=== PATIENT | male | born 1955 | race Caucasian/White ===

== ENCOUNTER 2024-10-16 11:59 | Emergency (ER) | payer MEDICARE, SELFPAY ==
--- NOTE | ~2024-10-16 | XR_ITS ---
CLINICAL HISTORY: Postreduction left 3rd finger 3 view left 3rd digit Comparison: CR - XR FINGER LT MIN 2V - 10/16/24 12:52 EST Findings: Interval reduction of the previously seen dislocation of the 3rd proximal interphalangeal joint. Appropriate alignment. Tiny adjacent bone fragments again noted. Mild arthritic change. No erosions. No radiopaque foreign body. IMPRESSION: Interval reduction of the dislocation of the 3rd proximal interphalangeal joint. This document has been electronically signed by: Conchis Guerrero MD on 10/16/2024 18:10:37
--- NOTE | ~2024-10-16 | XR_ITS ---
CLINICAL HISTORY: third digit pain 3 view [id number] digit Comparison: None Findings: There is dislocation of the 3rd proximal interphalangeal joint. The articular surface of the base of the 3rd middle phalanx is posterior and proximal to the articular surface of the head of the 3rd proximal phalanx. There are at least 2 tiny adjacent avulsed bone fragments. Mild arthritic change. No erosions. No radiopaque foreign body. IMPRESSION: Dislocation of the 3rd proximal interphalangeal joint with tiny adjacent avulsed bone fragments. This document has been electronically signed by: Conchis Guerrero MD on 10/16/2024 13:35:55
[2024-10-16 12:17] VITALS: BP 188/100; PULSE 67; RESP 19; TEMP 36.6; O2SAT 98; BMI 23.3
--- NOTE | 2024-10-16 12:20 | ED_ITS ---
HPI - Extremity Problem General Chief complaint: Extremity Injury, Upper Stated complaint: L Hand Middle Finger Injury Time Seen by Provider: 10/16/24 16:50 History of Present Illness HPI Narrative: Patient complains of left 3rd finger dislocation after slip and fall on the ice He denies any other injury he did not hit his head he has no neck pain no back pain no other extremity pains, he was not dizzy preceding the fall it was no syncope or presyncope He denies any numbness weakness or tingling in the finger Related Data Allergies Allergy/AdvReac Type Severity Reaction Status Date / Time No Known Allergies Allergy Verified 10/16/24 12:19 [No Known Allergies*] [facility] Social History Social History Advance Directives: No Advance Directives Information Provided: Yes Do you have a plan to hurt others: No Plan Physical Exam Vital Signs: Vital Signs: Last Vital Signs Temp 98 F 10/16/24 12:17 Pulse 67 10/16/24 12:17 Resp 19 10/16/24 12:17 BP 188/100 H 10/16/24 12:17 Pulse Ox 98 10/16/24 12:17 O2 Del Method Room Air 10/16/24 12:17 BMI result Body Mass Index 23.3 General appearance comfortable cooperative no acute distress Head is normocephalic atraumatic Neck is supple Respiratory no distress The left hand 3rd finger is deformed consistent with a dislocation, it is neurovascular intact distal, there is a small abrasion on the medial aspect of the proximal phalanx of the 3rd finger, very superficial not an open fracture Other extremities normal The rest of the left hand exam was normal Course Course Course Narrative: This is an RME: Additional HPI, ROS, PE not included below will be deferred to primary provider. RME assessment and note performed by: Valeria Young PA-C This is a 68-year-old male presents emergency department with complaints of left 3rd digit pain. Patient had a slip and fall. To an urgent care where they started splinting however abrasion noted to his skin, and was concerned for an open fracture. Patient with all VS dislocation of the 3rd middle phalanx, good capillary refill. Tender to palpation. Will obtain x-rays, further ER eval needed. Plan: xrays, further ER eval needed X-ray showed left 3rd finger dislocation with some tiny adjacent avulsed bone f ragments A digital block was placed with good results using 6 cc of 1% lidocaine and the finger was easily reduced Finger splint was placed and patient was discharged On discharge patient said that he was sent from urgent care because of the punctate abrasion on his left 3rd finger out of concern it was an open fracture, the x-ray did not show any jagged bone fragments that could a punctured the skin and on exam the abrasion is very superficial and did not penetrate so no open fracture Medications Administered Discontinued Medications Generic Name Dose Route Start Last Admin Trade Name Freq PRN Reason Stop Dose Admin Lidocaine HCl 5 ml 10/16/24 16:52 10/16/24 16:58 Lidocaine Hcl 1 % Mpf 5 Ml Vial SUBCUT 10/16/24 16:53 5 ml ONCE ONE Administration Lidocaine HCl 5 ml 10/16/24 16:52 10/16/24 16:58 Lidocaine Hcl 1 % Mpf 5 Ml Vial SUBCUT 10/16/24 16:53 5 ml ONCE ONE Administration Discharge Plan Discharge Clinical Impression: Dislocated finger Patient Disposition: Home, Self-Care Additional Instructions: The dislocated finger is back in place A splint was placed and you could remove it in 48 hours and start lightly using the finger Follow with orthopedist or primary doctor if not getting better quickly Return any time if it pops out of place or for any worse condition or any concerns The small abrasion on your finger is not an open fracture there was no jagged at the that could have punctured through Referrals: Pushpa Jacob MD [Physician] - (Left 3rd finger dislocation) Print Language: Sami
[2024-10-16] MEDS: Lidocaine HCl 1 % MPF 5 ML VIAL SUBCUT ×2 (16:58)
[2024-10-16 18:14] VITALS: BP 160/88; PULSE 77; RESP 18; TEMP 37.1; O2SAT 98
== END 2024-10-16 18:15 | disposition home or self-care (01) ==
PROVIDERS: Emergency Provider Emergency Medicine
DX: S63.253A Unspecified dislocation of left middle finger, initial encounter (principal); S60.512A Abrasion of left hand, initial encounter; W00.0XXA Fall on same level due to ice and snow, initial encounter; Y93.9 Activity, unspecified; Y92.9 Unspecified place or not applicable; Y99.8 Other external cause status
CPT/HCPCS: 29130; 73140; 99282; 99284; J2003

== ENCOUNTER → 2024-10-16 12:20 | Outpatient (BNV) | payer OTHER, SELFPAY | PROVIDERS: Visit Provider Radiology Diagnostic Radiology | DX: S63.283A Dislocation of proximal interphalangeal joint of left middle finger, initial encounter (principal) | CPT/HCPCS: 73140 ==

== ENCOUNTER 2024-10-25 09:11 | Outpatient (AMB) | payer MEDICARE, SELFPAY ==
[2024-10-25 09:42] VITALS: BMI 23.3
--- NOTE | 2024-10-25 09:42 | MHC.OFFVIS ---
Vital Signs 10/25/24 09:42 Height 6 ft Weight 172 lb BMI 23.3 Intake Visit Reasons: FC-Left 3rd finger dislocation-DOI 10/16/24 Intake Note: Bon 68 yr old right hand dominant male presents today for a new patient visit for his left middle finger dislocation after slip and fall on the ice on 10/16/24. States he was seen at urgent care where xrays were taken and pt was splinted due to a dislocation. States they had concerned for an open fracture. He was then seen at [facility] ED where his was reduced and splinted again. Currently states he has swelling, limited ROM , swelling and bruising. Also reports numbness that started after his fall. Denies locking of any finger. Allergies No Known Allergies [No Known Allergies*] Allergy (Verified 10/25/24 09:46) HPI HPI FC-Left 3rd finger dislocation-DOI 10/16/24: Details: Bon is a 68 year old right hand dominant man who presents for a left middle finger dislocation, S/P reduction in ED. DOI: 10/16/24 from a fall, and reduced 10/16/24. He was placed in a finger splint. He says he has pain, swelling, and limited ROM of his finger He also complains of numbness in his finger, which began following his injury. [facility] Social History (Updated 10/25/24 @ 09:46 by ELY Sheppard) Current occupational status: retired Current occupation: rt hand Review of Systems Const All systems reviewed & are unremarkable except as noted in HPI and below Physical Exam Vital Signs: BMI result Body Mass Index 23.3 Const General: cooperative, healthy appearing and no acute distress Orientation/consciousness: patient oriented x3 HEENT Head: Yes normocephalic and Yes atraumatic Eyes EOM: EOMs intact bilaterally Resp Effort & Inspection: normal respiratory effort and able to speak in complete sentences Cardio Jugular venous distension: no JVD Skin General skin exam: turgor normal Rashes: no rashes Neuro General: patient oriented x3 Extrem Other: Evaluation of Left Upper Extremity: The patient is alert, oriented, and in no acute distress Neuro: Median, Ulnar, Radial nerves motor and sensory intact, except for some decreased subjective sensation in the ulnar digital nerve to the middle finger has been present since his injury. Normal sensation to the radial digital nerve Vascular: Cap refill brisk The middle finger PIP joint is still swollen, and mildly tender. He has good range of motion in that finger with an arc of motion at the PIP joint from 0 to about 75 degrees and back to extension. Limitation appears to be secondary to swelling. The PIP joint is stable on exam. No lacerations or evidence of open injury Radiographs: 3 views of the left hand from 10/16/24 were reviewed by me today in clinic. Pre reduction films show a dorsal PIP dislocation. Postreduction films show a middle finger S/P satisfactory PIP joint concentric reduction Psych Appearance: grossly normal Affect: normal affect Attitude: cooperative Assessment & Plan Assessment & Plan (1) Dislocation of proximal interphalangeal joint of left middle finger: Comment: S/P reduction Code(s): S63.283A - Dislocation of proximal interphalangeal joint of left middle finger, initial encounter Category: Medical Plan Assessment & Plan: 1. Left middle finger PIP joint dorsal dislocation, S/P reduction Date of Procedure: 10/16/24, in ED From a fall, DOI: 10/16/24 I educated him about this condition I discussed treatment options No surgical intervention warranted at this time His middle & ring fingers were Michael-taped, to be worn with daily activities for the next 3 weeks I discussed activity modifications, he is to use his hand for lightweight objects for he next 2 weeks. He should avoid any heavy lifting, impact activities, or falls He will perform finger ROM exercises at home If he continues to have difficulty with ROM, we may consider a referral to OT hand therapy He will follow up prn Scribed for Pushpa Jacob MD by Preston Callaway, medical voucher clerk, on 10/25/24 at 9:50 AM, EST. Coding Level of Care Code New Pt Level 3 (96118) Diagnoses Dislocation of proximal interphalangeal joint of left middle finger S63.283A
== END 2024-10-25 10:11 | disposition home or self-care (01) ==
PROVIDERS: Visit Provider Orthopaedic Surgery
DX: S63.283A Dislocation of proximal interphalangeal joint of left middle finger, initial encounter (principal)
CPT/HCPCS: 99203

== ENCOUNTER → 2024-10-25 09:11 | Outpatient (BNVA) | payer MEDICARE, SELFPAY | PROVIDERS: Visit Provider Orthopaedic Surgery | DX: S63.283A Dislocation of proximal interphalangeal joint of left middle finger, initial encounter (principal) | CPT/HCPCS: 99202 ==